=== PATIENT | male | born 1950 | race Caucasian/White ===

== ENCOUNTER 2020-11-29 12:13 | Emergency (ER) | payer MEDICARE, MEDICAID ==
[~2020-11-29] VITALS: Ht 167.6 cm; Wt 90.9 kg
[2020-11-29 14:59] LABS: EOSINOPHILS % (AUTO) 0.1 % (0-6); HEMOGLOBIN 16.3 g/dl (14.0-17.9); MONOCYTES # (AUTO) 0.3 X10'3 (0-0.9); NEUTROPHILS # (AUTO) 3.2 X10'3 (1.8-7.7); NEUTROPHILS % (AUTO) 80.4 % (42-75)
[2020-11-29 15:01] LABS: BASOPHILS % (AUTO) 0 % (0-1); HEMATOCRIT 47.6 % (42.0-52.0); LYMPHOCYTES # (AUTO) 0.5 X10'3 (1.1-4.8); LYMPHOCYTES % (AUTO) 11.8 % (21-51); MEAN CORPUSCULAR HEMOGLOBIN 28.7 PG (27.0-31.0); MEAN CORPUSCULAR HGB CONC 34.2 g/dL (33.0-36.5); MEAN CORPUSCULAR VOLUME 83.9 FL (78-98); MEAN PLATELET VOLUME 7.9 FL (7.4-10.4); MONOCYTES % (AUTO) 7.7 % (2-12); PLATELET COUNT 205 X10'3 (140-440); RED BLOOD COUNT 5.67 X10'6 (4.70-6.10); RED CELL DISTRIBUTION WIDTH 14.6 % (11.5-14.5)
[2020-11-29 15:13] LABS: ALANINE AMINOTRANSFERASE 72 U/L (12-78); ALBUMIN 3.1 G/DL (3.4-5.0); ALBUMIN/GLOBULIN RATIO 0.7 (1.1-1.5); ALKALINE PHOSPHATASE 72 IU/L (46-116); ANION GAP 16 (8-16); ASPARTATE AMINO TRANSFERASE 71 U/L (10-37); BILIRUBIN,TOTAL 0.8 MG/DL (0.1-1.0); BLOOD UREA NITROGEN 91 MG/DL (7-18); BUN/CREATININE RATIO 38.6 (5.4-32.0); CALCIUM 8.2 MG/DL (8.5-10.1); CHLORIDE 99 MMOL/L (99-107); CREATININE 2.36 MG/DL (0.60-1.10); GLUCOSE 119 MG/DL (70-104); POTASSIUM 4.1 MMOL/L (3.5-5.1); SODIUM 134 MMOL/L (135-145); TOTAL CARBON DIOXIDE 18.6 MMOL/L (24-32); TOTAL PROTEIN 7.6 G/DL (6.4-8.2); eGFR 27 ML/MIN
[2020-11-29 16:01] LABS: CLARITY,URINE CLOUDY (Clear); COLOR,URINE YELLOW (Yellow); GLUCOSE, URINE NEGATIVE (Neg); KETONES,URINE TRACE mg/dl (Neg); LEUKOCYTE ESTERASE ,URINE LARGE (Neg); NITRITES, URINE NEGATIVE (Neg); OCCULT BLOOD,URINE LARGE (Neg); PH,URINE 5.5 (4.8-8.0); PROTEIN,URINE 30 mg/dl (Neg); UROBILINOGEN,URINE 0.2 E.U/dL (0.2-1.0)
[2020-11-29 16:05] LABS: UA COLLECTION TYPE CLN CATCH MIDSTREAM
[2020-11-29 16:18] LABS: BACTERIA,URINE 1+ /HPF (Neg); MUCUS STRANDS NONE SEEN /LPF (Neg); SQUAMOUS EPITHELIAL CELL,UR MODERATE /LPF (FEW); TRANSITIONAL EPI CELLS,URINE FEW /HPF; WBC CLUMPS,URINE MODERATE /HPF (NEGATIVE); WBC,URINE TNTC /HPF (0-4)
[2020-11-29] MEDS ORDERED: normal saline 1000ML IV soln IVB ONE (16:45)
[2020-11-29] MEDS ORDERED: CASIRIVIMAB (REGN10933) 1332MG 600 MG, IMDEVIMAB (REGN10987) 1332mg 600 MG in normal sa... IV ONE (16:45)
[2020-11-29] MEDS ORDERED: CefTRIAXone 2gm/D5W 50ml BAG 50 ML IV ONE (16:55)
[2020-11-29] MEDS ORDERED: dexamethasone sod phosphate 10mg/ml inj IV STA (19:09)
[2020-11-29] MEDS ORDERED: CEPH-585 PO (19:48)
[2020-11-29] MEDS ORDERED: DEXA6TAB6 PO (19:48)
[2020-11-29 20:16] VITALS: BP 134/53
--- NOTE | 2020-11-29 20:57 | NUR ---
FELICITA AMBRIZ (SON): [phone]
== END 2020-11-29 21:28 | disposition home or self-care (01) ==
LOC: ER 12:15
DX: U07.1 COVID-19 (principal); R11.2 Nausea with vomiting, unspecified; N17.9 Acute kidney failure, unspecified; N39.0 Urinary tract infection, site not specified; E86.0 Dehydration; Z79.2 Long term (current) use of antibiotics; Z79.899 Other long term (current) drug therapy
CPT/HCPCS: 36415; 80053; 81001; 85025; 87635; 96361; 96365; 96375; 99284; C9803; J0696; J1100; J7030; M0243; Q0243; 96366; 96368